=== PATIENT | female | born 1970 | race Caucasian/White ===

== ENCOUNTER → 2018-02-16 | Outpatient (CLI) | payer BC | LOC: SL 19:21 | PROVIDERS: ATTEND Internal Medicine | DX: G47.33 Obstructive sleep apnea (adult) (pediatric) (principal) ==

== ENCOUNTER 2019-07-08 13:56 | Inpatient (IN) | payer BC ==
--- NOTE | 2019-07-08 14:59 | RAD ---
EXAM DESCRIPTION: Chest,1 View CLINICAL HISTORY: 49 years Female, syncope COMPARISON: Previous chest x-ray March 23, 2014 TECHNIQUE: AP portable chest. FINDINGS: Heart size is large with normal pulmonary vascularity. Implanted cardiac monitoring device overlies the left heart. Mild rightward curvature of the T-spine. No consolidating infiltrate. No pulmonary mass or worrisome nodule. No pneumothorax or pleural effusion. Bones are unremarkable. IMPRESSION: No acute process is identified in the chest. Electronically signed by: Alexandru Sue MD 07/08/2019 2:57 PM CDT
[2019-07-08] MEDS ORDERED: POTASSIUM CHLORIDE ELIXIR 20 MEQ/15 ML UD PO ONE (15:47)
[2019-07-08] MEDS ORDERED: KCL 20 MEQ/NS 1,000 ML IVS ONE (15:48)
[2019-07-08] MEDS ORDERED: cefTRIAXone SODIUM 1 GM in SODIUM CHL 0.9% 50ML MIN-BAG+ 50 ML IVPB ONE (17:32)
[2019-07-08] MEDS ORDERED: SODIUM CHL 0.9% 50ML MIN-BAG+ 50 ML IVPB ONE (17:45)
[2019-07-08] MEDS ORDERED: cefTRIAXone SODIUM 1 GM VIAL ONE (17:45)
[2019-07-08] MEDS ORDERED: IBUPROFEN 200 MG TAB PO ONE (18:01)
--- NOTE | 2019-07-08 18:36 | ED.PDOC ---
History of Present Illness - General Chief Complaint: Syncope/Near Syncope Stated Complaint: Syncopal event w/o a fall Time Seen by Provider: 07/08/19 14:01 Source: patient Exam Limitations: no limitations - History of Present Illness Initial Comments: the patient is a 49-year-old female presenting to emergency room after a near syncopal event this afternoon. She had been managing a garage several when she felt lightheaded, with tingling in her extremities. She was able to fairly well lower herself to the ground. No injuries. She is not sure she went out entirely. Her family with her thinks that she may have gone completely out for about 3 or 4 seconds. No nausea or vomiting. She did eat prior. She had felt poorly earlier in the morning. She does have a history of atrial fibrillation with rapid ventricular rate. She did have another ablation done 1- 2 months ago. She does take propafanone and diltiazem for heart rate control. She does have a loop recorder in place. she did take her medications this morning. She has also been having some lower abdominal cramping for the last few days. Timing/Duration: momentarily Severity: moderate Improving Factors: nothing Worsening Factors: nothing Associated Symptoms: loss of appetite, malaise, nausea/vomiting, syncope, weakness Allergies/Adverse Reactions: Allergies Penicillins Allergy (Verified 07/08/19 14:15) Home Medications: Ambulatory Orders Furosemide [Lasix] 40 mg PO DAILY #4 tab 06/13/16 Sulfa/Trimeth 800/160 (Ds) Tab [Bactrim DS Tab] 1 ea PO BID #10 tab 06/13/16 Review of Systems - Review of Systems Constitutional: States: malaise, weakness - eneralized EENTM: States: no symptoms reported Respiratory: States: no symptoms reported Cardiology: States: no symptoms reported Gastrointestinal/Abdominal: States: abdominal pain Genitourinary: States: no symptoms reported Musculoskeletal: States: no symptoms reported Skin: States: no symptoms reported Neurological: States: other - syncope Endocrine: States: no symptoms reported All other Systems: No Change from Baseline Past Medical History (General) - Patient Medical History Hx Seizures: No Hx Stroke: No Hx Dementia: No Hx Asthma: No Hx of COPD: No Hx Cardiac Disorders: Yes - A fib Hx Congestive Heart Failure: No Hx Pacemaker: No Hx Hypertension: Yes Hx Thyroid Disease: No Hx Diabetes: No Hx Gastroesophageal Reflux: No Hx Renal Disease: No Hx Cancer: No Hx of HIV: No Hx Hepatitis C: No Hx MRSA: No Surgical History: tonsillectomy - Vaccination History Hx Tetanus, Diphtheria Vaccination: Yes Hx Influenza Vaccination: Yes Hx Pneumococcal Vaccination: No - Social History Hx Tobacco Use: No Hx Chewing Tobacco Use: No Hx Alcohol Use: No Hx Substance Use: No Hx Substance Use Treatment: No Hx Depression: No Hx Physical Abuse: No Hx Emotional Abuse: No Hx Suspected Abuse: No - Female History Patient is a Female of Child Bearing Age (10 -59 yrs old): Yes Patient : No - Denies Family Medical History - Family History Mother Family History: Unknown Living Status: Unknown Hx Family Hypertension: Yes Hx Cardiac Disease: Yes Hx Family;Other: Adopted Physical Exam - Physical Exam General Appearance: Alert, Ill Appearing Eye Exam: bilateral normal Ears, Nose, Throat: hearing grossly normal, normal pharynx Neck: full range of motion, supple Respiratory: lungs clear, normal breath sounds, no respiratory distress, no accessory muscle use Cardiovascular/Chest: normal peripheral pulses, regular rate, rhythm, no edema Peripheral Pulses: radial,right: 2+, radial,left: 2+ Gastrointestinal/Abdominal: soft, other - mild diffuse lower abdominal discomfort palpation. No rebound or peritoneal signs. no pin point pain at this time. Rectal Exam: deferred Back Exam: no CVA tenderness, no vertebral tenderness Extremity: normal range of motion, non-tender, normal inspection, no pedal edema, no calf tenderness, normal capillary refill Neurologic: turn sewer II-XII nml as tested, alert, normal mood/affect, oriented x 3 Skin Exam: normal color Comments: Vital Signs - 24 hr 07/08/19 07/08/19 07/08/19 14:08 15:18 15:19 Temperature 100.4 F H Pulse Rate [ 76 75 81 Monitor] Respiratory 20 18 18 Rate Blood Pressure 132/72 104/65 103/68 [L brachial] O2 Sat by Pulse 100 96 98 Oximetry 07/08/19 07/08/19 07/08/19 16:00 17:00 18:00 Temperature Pulse Rate [ 77 73 70 Monitor] Respiratory 18 20 16 Rate Blood Pressure 137/63 104/67 105/61 [L brachial] O2 Sat by Pulse 99 99 98 Oximetry Progress - Progress Progress: 07/08/19 18:40 the patient is a 49-year-old female presenting after syncopal event of a few seconds that was likely related to her A. fib with RVR. Heart rate monitor shows that her rate was up in the 180s at times during the day today. She cardioverted spontaneously back to normal sinus rhythm before arriving here. She has remained in normal sinus rhythm since here. The patient does have some mild dehydration has been given some IV fluids. She has very significant hypokalemia and is being repleted orally and with IV. She will need to have this rechecked and likely supplemented further overnight. The patient does have a fever and a leukocytosis which may be attributed to the cystitis. She is receiving a dose of Rocephin for that currently. She will need to be continued on her diltiazem and propafenone obviously. She may benefit from a reduction in Lasix both from the standpoint of her current dehydration and hypokalemia. Consideration could possibly given to low-dose spironolactone in place of her second dose of Lasix. Admitted for continued monitoring and potassium repletion. kianna jade [id number] - Results/Orders Results/Orders: chest x-ray shows mild cardiomegaly. EKG shows normal sinus rhythm with a mild right axis deviation. Rate is [address] segment depression in anterior leads. This may however be an incomplete return to baseline between the T wave and the P wave, due to the hypokalemia. no other definitive ST segment or T-wave changes indicative of acute ischemia. Normal QT interval. Normal R-wave progression. Possibly mild right atrial dilation. Laboratory Tests 07/08/19 07/08/19 07/08/19 14:47 14:47 14:47 WBC 16.9 H RBC 4.35 Hgb 13.2 Hct 37.9 MCV 87.2 MCH 30.3 MCHC 34.7 RDW 12.0 Plt Count 256 MPV 9.5 Absolute Neuts (auto) 13.20 H Absolute Lymphs (auto) 1.60 Absolute Monos (auto) 1.90 H Absolute Eos (auto) 0.10 Absolute Basos (auto) 0.00 Neutrophils % 78.3 H Lymphocytes % 9.5 L Monocytes % 11.3 H Eosinophils % 0.6 L Basophils % 0.3 PT 10.9 INR 1.09 PTT (SP) 27.6 Sodium 138 Potassium 2.1 L* Chloride 96 L Carbon Dioxide 28 Anion Gap 16.1 BUN 26 H Creatinine 1.19 BUN/Creatinine Ratio 21.8 H Random Glucose 161 H Serum Osmolality 283.9 Lactic Acid Calcium 10.1 Magnesium 2.1 Total Bilirubin 1.0 AST 38 ALT 32 Alkaline Phosphatase 105 Creatine Kinase 337 H* CK-MB (CK-2) 4.7 H* CK-MB (CK-2) % 1.39 Troponin I 0.04 B-Natriuretic Peptide 183.0 H Serum Total Protein 7.8 Albumin 4.5 Globulin 3.3 Albumin/Globulin Ratio 1.4 TSH 2.37 Urine Color Urine Appearance Urine pH Ur Specific Pringle Urine Protein Urine Glucose (UA) Urine Ketones Urine Blood Urine Nitrite Urine Bilirubin Urine Urobilinogen Ur Leukocyte Esterase Urine RBC Urine WBC Ur Epithelial Cells Urine Bacteria Urine HCG, Qual 07/08/19 07/08/19 07/08/19 14:47 15:45 15:45 WBC RBC Hgb Hct MCV MCH MCHC RDW Plt Count MPV Absolute Neuts (auto) Absolute Lymphs (auto) Absolute Monos (auto) Absolute Eos (auto) Absolute Basos (auto) Neutrophils % Lymphocytes % Monocytes % Eosinophils % Basophils % PT INR PTT (SP) Sodium Potassium Chloride Carbon Dioxide Anion Gap BUN Creatinine BUN/Creatinine Ratio Random Glucose Serum Osmolality Lactic Acid 1.3 Calcium Magnesium Total Bilirubin AST ALT Alkaline Phosphatase Creatine Kinase CK-MB (CK-2) CK-MB (CK-2) % Troponin I B-Natriuretic Peptide Serum Total Protein Albumin Globulin Albumin/Globulin Ratio TSH Urine Color Yellow Urine Appearance Clear Urine pH 6.5 Ur Specific Pringle 1.015 Urine Protein 30 Urine Glucose (UA) Negative Urine Ketones Negative Urine Blood Small H Urine Nitrite Negative Urine Bilirubin Negative Urine Urobilinogen 0.2 Ur Leukocyte Esterase Trace H Urine RBC 1-3 Urine WBC 10-20 H Ur Epithelial Cells 5-10 Urine Bacteria 1+ Urine HCG, Qual Negative Departure - Departure Clinical Impression: Hypokalemia, Atrial fibrillation with RVR, Dehydration, Cystitis Syncope Qualifiers: Syncope type: unspecified Qualified Code(s): R55 - Syncope and collapse Disposition: Admit Patient Departure Forms: ED Discharge - Pt. Copy, Patient Portal Self Enrollment Referrals: Martin Toney MD [Primary Care Provider] - 1-2 Weeks Home Medications: Ambulatory Orders Furosemide [Lasix] 40 mg PO DAILY #4 tab 06/13/16 Sulfa/Trimeth 800/160 (Ds) Tab [Bactrim DS Tab] 1 ea PO BID #10 tab 06/13/16 Decision To Admit - Decistion To Admit Decision to Admit Reason: Medical Nature Decision to Admit Date: 07/08/19 Decision to Admit Time: 18:44
--- NOTE | 2019-07-08 19:02 | HP ---
SUPERVISING PHYSICIAN: Tomás Pathak MD CHIEF COMPLAINT: Syncopal event without a fall. HISTORY OF PRESENT ILLNESS: Ms. Chaparro is a 49 year-old female patient who presented to the Emergency Department this afternoon after she had a near-syncopal episode at home. She had been working a garage sale when she noted she was lightheaded and was not feeling well, was having what she called tingling to her extremities. She reported she was going to lay down, however, she was unable to make it to the bed and was assisted to the ground by her family members. She reported no injuries and she is unsure if she actually lost consciousness but her family thinks she may have been out for 3 to 4 seconds. She reported no nausea or vomiting. She had previously eaten a hamburger. She does have a history of atrial fibrillation with rapid ventricular rate and has had 5 ablations with last ablation being in the last month. She was started on Propafenone and diltiazem for rate control. She has a loop recorder in place which after notifying the company, the device was interrogated and she did have an episode when her heart rate was in the 180s. She apparently converted spontaneously back to normal sinus rhythm before she arrived the Emergency Room. On arrival to the Emergency Room, she was in a sinus rhythm. She is noted to be mildly dehydrated and was given some IV fluids. Her lab did show she had a significant hypokalemia with a potassium of 2.1, magnesium was normal. She does take Lasix and potassium replacement and notes that she has not taken any extra doses. Her troponin was within normal limits at 0.04. She denies any chest pain. Her EKG in the Emergency Room showed she was in a sinus rhythm with a controlled ventricular rate at 76 with just a very mild ST segment depression anteriorly but unable to fully interpret due to the low potassium but no true evidence of ST segment T-wave changes to indicate acute ischemia. Her QT- intervals were normal. She had normal R-wave progression. She is also on chronic anticoagulation with Eliquis. She was given oral potassium as well as started on IV fluids for dehydration and potassium replacement. A urinary tract infection was noted by her urine that showed she had 10 to 20 WBCs with 1+ bacteria. She was given a dose of Rocephin. Her urine HCG was negative. Given that she is showing to be stable as to her heart rhythm and had no chest pains noted after the acute event, she is going to be placed in observation for further cardiac telemetry monitoring and further normalization of her potassium. She was placed in observation in stable condition. PAST MEDICAL HISTORY: 1. Atrial fibrillation with 5 ablations, last being in the last month and one cardioversion, on Cardizem and Rythmol for rate control. 2. Congenital heart defect. PAST SURGICAL HISTORY: 1. Patent ductus repair. 2. Reported atrial septal defect. Those records are not available for review. 3. Tonsillectomy x2. 4. x1. CURRENT MEDICATIONS: Awaiting updated list for verification but on followin. Lasix. 2. Cardizem. 3. Rythmol. 4. Potassium. 5. Eliquis. Please see an updated list once those are verified medications on admission. ALLERGIES: PENICILLINS. FAMILY HISTORY: Unknown as she is adopted. SOCIAL HISTORY: The patient has worked at [employer] for multiple years. She is . She has one child who is 18 years of age. She lives in [place]. She has never smoked, she does not drink alcohol or use illicit drugs. REVIEW OF SYSTEMS: CONSTITUTIONAL: Positive for general malaise and weakness. HEENT: Denies headaches, ear aches, sore throat, visual change or nasal congestion. RESPIRATORY: Negative for shortness of breath, wheezing or coughing. CARDIOVASCULAR: As noted in history of present illness. History of atrial fibrillation but no reported palpitations or chest pain but did have a near syncopal episode. GASTROINTESTINAL: Denies abdominal pain, nausea or vomiting or diarrhea. GENITOURINARY: Denies dysuria, hematuria, polyuria. MUSCULOSKELETAL: Denies arthralgias, joint swelling. SKIN: Denies changes. lesions, moles or rashes. NEUROLOGIC: Positive for near-syncopal, syncopal episode as noted in history of present illness. Negative for ataxia, seizures, paresthesias or other neurological deficit. HEMATOLOGIC: Denies easy bruising, unexplained bleeding or transfusion reaction. PHYSICAL EXAMINATION: VITAL SIGNS: On admission to the Emergency Room, temperature was 100.4, heart rate 76, blood pressure 132/72, respirations 20, oxygen saturation 100% on room air. Review of her [employer] loop monitor showed she had a rate as high as 180s but she cardioverted and continues to show a controlled ventricular rate. Admission weight 73 kg. GENERAL: The patient appears to be in no acute distress. She is well- nourished. She is alert. She does appear tired or not feeling well but no obvious distress. HEENT: Tympanic membranes are clear bilaterally. Oropharynx is pink with dry mucous membranes. NECK: Supple, non-tender, full range of motion, no jugular venous distention. CHEST: Lung sounds are clear to auscultation without any obvious rhonchi, rales, or wheezes. CARDIOVASCULAR: Regular rate and rhythm without appreciable murmurs, rubs, or gallops. ABDOMEN: Soft, non-tender. On palpation, no rebound tenderness or peritoneal signs. No pin point pain, no guarding. Bowel sounds are active. BACK: No obvious CVA tenderness or vertebral tenderness. EXTREMITIES: No cyanosis, clubbing, or edema. NEUROLOGIC: Cranial nerves II through XII are grossly intact. Facial features were symmetrical. No notable nystagmus. She was alert and oriented x 3. SKIN: Warm, pink and dry. RECTAL: Exam deferred. LABORATORY: White count elevated at 16,900, hemoglobin 13.2, hematocrit 37.9, platelet count 256,000. Differential did show a left shift. Coagulation studies showed normal PT/PTT. Chemistries showed a hypokalemia with a potassium of 2.1, normal sodium at 138. Magnesium was normal at 2.1. Creatinine 1.19 with BUN of 26. BUN/creatinine ratio was 22. Lactic acid 1.3. CPK was elevated at 337 with a CPK MB percent of 1.39. Troponin 0.04. BNP only slightly elevated at 183. TSH normal at 2.37. Urinalysis showed a small amount of blood with a trace of leukoesterase, 1 to 3 RBCs, 10 to 20 WBCs, 5 to 10 epithelials, 1+ bacteria, negative urine HCG. MICROBIOLOGY: Blood cultures are pending. Urine culture pending. RADIOLOGY: Chest x-ray, single-view chest, per radiology interpretation showed no acute process identified within the chest. ASSESSMENT: 1. Syncopal episode without fall or injury with a history of atrial fibrillation and previous ablations, on rate controlled medication with Rythmol, Cardizem and review of cardiac loop monitor showing during the reported episode that she had a heart rate in the 180s that cardioverted to normal sinus rhythm prior to admission. 2. Hypokalemia, possibly contributing to #1. 3. Moderate dehydration with the patient having a history of Lasix, possibly contributing to the hypokalemia and exacerbating #1. 4. History of atrial fibrillation with 5 ablations and 1 cardioversion and recently being put on Rythmol and Cardizem. 5. Urinary tract infection with cultures pending. 6. Leukocytosis with a fever with no other signs of sepsis with a reported heart rate in the 180s, syncopal episode and temperature and infectious source identified as a urinary tract infection with a leukocytosis possibly resulting in an exacerbation of her ventricular rate and contributing to the syncopal episode. PLAN: Ms. Chaparro is going to be placed in observation tonight for close cardiac telemetry monitoring neurological status checks. We will resume her home medications. We will continue with potassium replacement. She got 40 oral in the Emergency Room and is getting IV fluids with IV potassium which will continue through the night. Will check a BNP in the morning. Will hold her Lasix at this point and reassess in the morning. I anticipate length of stay to be 1 to 2 days, possibly discharge later tomorrow if her potassium normalizes and she has no return of the abnormal heart rate. Will continue with antibiotic coverage for urinary tract infection with Rocephin. Cultures are pending. I do not anticipate this will keep her from being discharged unless she continues to run a fever and show declining status overnight. She will discharge with oral antibiotics and closely followup with urine cultures on discharge. She is already on DVT prophylaxis with Eliquis which will be continued. Until we can transition to outpatient management, will continue to monitor and treat as needed. On discharge, she will need close followup with her hose handler next week, but again, she also has a continuous ekg monitor tech implanted which is being directly observed. She will also need to followup with Dr. Toney, her primary care physician, as she has not seen him in well over a year to 2 years. #[id number] [facility]
[2019-07-08] MEDS ORDERED: ONDANSETRON INJ 4 MG/2 ML VIAL IV PRN (19:49)
[2019-07-08] MEDS ORDERED: SODIUM CHLORIDE 0.9% (FLUSH) 10 ML SYG IV PRN (19:49)
[2019-07-08] MEDS ORDERED: MAGNESIUM HYDROXIDE 30 ML UD PO PRN (19:49)
[2019-07-08] MEDS ORDERED: ALUM & MAG HYDROX-SIMETHICONE 30 ML UD PO PRN (19:49)
[2019-07-08] MEDS ORDERED: ACETAMINOPHEN 325 MG TAB PO PRN (19:49)
[2019-07-08] MEDS: IV SET AND CAP CHANGE INJ INJ SCH (20:52)
[2019-07-08] MEDS ORDERED: ENOXAPARIN SODIUM 40 MG/0.4 ML SYG SUBCU SCH (21:00)
[2019-07-08] MEDS ORDERED: KCL 20 MEQ/NS 1,000 ML IVS PRN (22:03)
[2019-07-08] MEDS ORDERED: PROPAFENONE 150 MG TAB ONE (22:08)
[2019-07-08] MEDS: PROPAFENONE HCL 225 MG PO SCH (22:09)
[2019-07-08] MEDS: APIXABAN 5 MG TAB PO SCH (22:10)
[2019-07-08] MEDS: KCL 20 MEQ/NS 1,000 ML IVS PRN (22:12)
[2019-07-09] MEDS: KCL 20 MEQ/NS 1,000 ML IVS PRN ×2 (02:36→19:49)
[2019-07-09] MEDS ORDERED: POTASSIUM CHLORIDE 20 MEQ TAB PO ONE (08:01)
[2019-07-09] MEDS ORDERED: SODIUM CHL 0.9% 50ML MIN-BAG+ 50 ML IVPB ONE ×3 (08:59→19:09)
[2019-07-09] MEDS ORDERED: cefTRIAXone SODIUM 1 GM VIAL ONE (09:00)
[2019-07-09] MEDS ORDERED: cefTRIAXone SODIUM 1 GM in SODIUM CHL 0.9% 50ML MIN-BAG+ 50 ML IVPB SCH (09:00)
[2019-07-09] MEDS: APIXABAN 5 MG TAB PO SCH ×2 (09:04→20:43)
[2019-07-09] MEDS: PROPAFENONE HCL 225 MG PO SCH ×2 (09:30→20:43)
[2019-07-09] MEDS: DILTIAZEM HCL COATED BEADS PO SCH (09:30)
[2019-07-09] MEDS ORDERED: CEFEPIME 2 GM VIAL ONE ×2 (16:30→19:10)
[2019-07-09] MEDS: CEFEPIME 2 GM in SODIUM CHL 0.9% 50ML MIN-BAG+ 50 ML IVPB SCH (16:39)
[2019-07-10] MEDS: CEFEPIME 2 GM in SODIUM CHL 0.9% 50ML MIN-BAG+ 50 ML IVPB SCH ×3 (00:33→17:03)
[2019-07-10] MEDS ORDERED: CEFEPIME 2 GM VIAL ONE ×3 (08:13→19:31)
[2019-07-10] MEDS ORDERED: SODIUM CHL 0.9% 50ML MIN-BAG+ 50 ML IVPB ONE ×3 (08:13→19:31)
--- NOTE | 2019-07-10 08:19 | PN ---
DATE: 07/09/19 SUPERVISING PHYSICIAN: Tomás Pathak MD SUBJECTIVE: The patient is not having any additional abnormal rhythms on the bedside monitor. She does have chills but no actual fever but she did show a positive blood culture with gram negative rods today. She has had no nausea, vomiting or diarrhea. OBJECTIVE: VITAL SIGNS: Temperature 99.5, pulse 83, blood pressure 113/66, oxygen saturation 99%. GENERAL: The patient is resting comfortably and appears to be in no acute distress. She is alert. CHEST: Clear to auscultation. HEART: Regular rate and rhythm. ABDOMEN: Soft, non-tender, positive bowel sounds. EXTREMITIES: Without edema. NEUROLOGIC: She is alert and oriented x3. LABORATORY: White cont 10,300, hemoglobin 10.9, hematocrit 31.0, platelet count 147,000. Differential does show improving left shift. Chemistries: potassium this morning 2.8. Other electrolytes within normal limits. BUN 19, creatinine down to 149. Troponin 0.2. MICROBIOLOGY: Urine culture pending. One blood culture did show gram negative rods on preliminary with culture pending.. ASSESSMENT: 1. Syncopal episode without fall or injury with a history of atrial fibrillation and previous ablations, on rate controlled medication with Rythmol, Cardizem and review of cardiac loop monitor showing during the reported episode that she had a heart rate in the 180s that cardioverted to normal sinus rhythm prior to admission. 2. Hypokalemia, possibly contributing to #1. 3. Gram negative bacteremia, possibly contributing to #1. 4. Moderate dehydration with the patient having a history of Lasix, possibly contributing to the hypokalemia and exacerbating #1, improved with oral replacement. 5. Sepsis with leukocytosis, fever, infectious source to include gram negative bacteremia likely worsened, cultures pending with heart rate noted before admission in the 180s and syncopal episode as noted in #1. PLAN: Ms. Chaparro is going to continue with current plan of care at this point with antibiotics but will switch her to Cefepime 2 grams every 8 hours given that she did show a gram negative rosa maria in the blood culture. She remains hemodynamically stable. She has not had any additional runs of V-tach or atrial fibrillation with RDR since admission. Her potassium continues to show improvement, will continue with oral replacement and followup with a BMP to normalize. Will await culture results on the urine and blood culture to target antibiotic therapy as appropriate. Anticipate her length of stay to be at least 2 to 3 days pending the cultures to assure we are on the right antibiotics since she is showing improvement. Until we can transition her to outpatient management, we will continue to monitor and treat as needed #[id number] [facility]
[2019-07-10] MEDS: APIXABAN 5 MG TAB PO SCH ×2 (08:29→20:40)
[2019-07-10] MEDS: PROPAFENONE HCL 225 MG PO SCH ×2 (08:29→20:40)
[2019-07-10] MEDS: KCL 20 MEQ/NS 1,000 ML IVS PRN (08:29)
[2019-07-10] MEDS: DILTIAZEM HCL COATED BEADS PO SCH (08:30)
[2019-07-10] MEDS ORDERED: SODIUM CHLORIDE 0.9% (FLUSH) 10 ML SYG IV ONE (08:37)
[2019-07-10] MEDS: SODIUM CHLORIDE 0.9% (FLUSH) 10 ML SYG IV SCH ×2 (17:04→20:40)
--- NOTE | 2019-07-10 18:37 | PN ---
DATE: 07/10/19 SUPERVISING PHYSICIAN: Tomás Pathak M.D. SUBJECTIVE: The patient is doing well this morning. She has been afebrile. I did talk to her about the positive blood culture and plan of care being that she will be in the hospital probably until we can get a culture result back so we know what to do with her antibiotic therapy. She is not reporting any nausea or vomiting, or any diarrhea. OBJECTIVE: VITAL SIGNS: Temperature 98.5, pulse 74, blood pressure 110/75, respirations 18, satting 99% on room air. GENERAL: The patient is resting comfortably visiting with family. She is alert. CHEST: Clear to auscultation. HEART: Regular rate and rhythm. ABDOMEN: Soft, non-tender. Positive bowel sounds. EXTREMITIES: Without edema. NEUROLOGIC: She is alert and oriented times three. LABORATORY: White count normalized yesterday to 10,300. Chemistries today are showing sodium 142, potassium 3.2 with BUN 11, creatinine 0.79, calcium 9.9, magnesium is normal at 2.0. MICROBIOLOGY: She has 1 blood culture that was positive for gram-negative rods with culture and sensitivity pending. Urine culture sensitivity pending. RADIOLOGY: No additional radiographic studies. ASSESSMENT: 1. Syncopal episode secondary to a short episode of atrial fibrillation with a rapid ventricular response into the 180s with spontaneous cardioversion with the patient not showing any additional abnormal rhythms with the patient on Rythmol and Cardizem. 2. Hypokalemia, possibly contributing to #1, improved with replacement. 3. Sepsis secondary to gram negative bacteremia and a urinary tract infection likely exacerbating #1 due to fever. 4. Moderate dehydration due to Lasix which probably was contributing to #1 now improved with oral replacement and IV therapy. 5. History of atrial fibrillation with multiple ablation therapy sessions with the last being within the last month with the patient having continuous bus driver/monitor implanted with the patient having a controlled rate with Rythmol and Cardizem with a brief episode of rapid ventricular response but spontaneously cardioverted to normal sinus rhythm with the patient being closely followed by cardiology. PLAN: Will continue antibiotic coverage at this point with Cefepime every 8 hours awaiting final culture results both on her urine and blood cultures. Once those cultures are back we can target antibiotic therapy as appropriate hopefully with oral coverage. Given that she does have bacteremia and an implanted device, probably need to touch base with Dr. Meza once all of the cultures are back to further determine need for antibiotic coverage and length of treatment. Will continue to monitor potassium. I am holding her Lasix which she was taking 80 daily apparently for extreme swelling. I did discuss with her that on discharge she will need probably to decrease this dose or at least hold it until she sees her stock associate. Until we can get cultures back and further target antibiotic therapy will continue to monitor and treat as needed until we can transition her to outpatient management. #[id number] [facility]
[2019-07-11] MEDS: CEFEPIME 2 GM in SODIUM CHL 0.9% 50ML MIN-BAG+ 50 ML IVPB SCH ×3 (01:30→17:01)
[2019-07-11] MEDS ORDERED: SODIUM CHL 0.9% 50ML MIN-BAG+ 50 ML IVPB ONE ×3 (09:30→19:47)
[2019-07-11] MEDS ORDERED: CEFEPIME 2 GM VIAL ONE ×3 (09:31→19:47)
[2019-07-11] MEDS: DILTIAZEM HCL COATED BEADS PO SCH (09:33)
[2019-07-11] MEDS: APIXABAN 5 MG TAB PO SCH ×2 (09:33→20:48)
[2019-07-11] MEDS: SODIUM CHLORIDE 0.9% (FLUSH) 10 ML SYG IV SCH ×2 (09:34→20:48)
[2019-07-11] MEDS: PROPAFENONE HCL 225 MG PO SCH ×2 (09:34→20:47)
--- NOTE | 2019-07-11 14:07 | PN ---
SUPERVISING PHYSICIAN: Martin Toney MD DATE: 07/11/19 SUBJECTIVE: The patient does not really have any significant complaints today. She denies any nausea and vomiting, any type of pain at this time. OBJECTIVE: VITAL SIGNS: Blood pressure 115/76. Heart rate 64. Respiratory rate 20. Temperature 98.1. Oxygen saturation 100%. GENERAL: Ms. Chaparro is a 49-year-old female in no acute distress currently. NEUROLOGIC: Alert and oriented. LUNGS: Clear to auscultation bilaterally. CARDIOVASCULAR: Regular rate and rhythm. Normal S1, S2. ABDOMEN: Soft. Positive bowel sounds. GENITOURINARY: Deferred. EXTREMITIES: Lower extremities with no edema. LABORATORY: Potassium 3.3. This is a little bit of improvement from yesterday. ASSESSMENT: 1. Syncopal episode secondary to a atrial fibrillation with rapid ventricular response, which is now normal sinus rhythm. 2. Hypokalemia, seems to be improving. 3. Sepsis secondary to gram negative bacteremia likely from urinary tract infection with final identification pending. 4. Dehydration secondary to excessive Lasix, improving. 5. History of atrial fibrillation with multiple ablation therapies in the past, currently utilizing Rythmol and Cardizem. PLAN: Given her improvement on her current antibiotics, I will not change these. Heart rate is controlled on current medications as well. Once the final identification is back, we can decide on antibiotic therapies, but we will continue IV cefepime for now. #[id number] [facility]
[2019-07-11] MEDS ORDERED: CLINDAMYCIN IV 600MG 0 ML IVPB ONE (19:17)
[2019-07-11] MEDS ORDERED: LACTATED RINGERS 0 ML ONE (19:17)
[2019-07-11] MEDS ORDERED: PANTOPRAZOLE SODIUM IV 40 MG VIAL ONE (19:18)
[2019-07-11] MEDS: IV SET AND CAP CHANGE INJ INJ SCH (20:51)
[2019-07-12] MEDS: CEFEPIME 2 GM in SODIUM CHL 0.9% 50ML MIN-BAG+ 50 ML IVPB SCH ×2 (00:43→08:53)
[2019-07-12] MEDS ORDERED: SODIUM CHL 0.9% 50ML MIN-BAG+ 50 ML IVPB ONE (06:58)
[2019-07-12] MEDS ORDERED: CEFEPIME 2 GM VIAL ONE (06:58)
[2019-07-12] MEDS: SODIUM CHLORIDE 0.9% (FLUSH) 10 ML SYG IV SCH (08:48)
[2019-07-12] MEDS: DILTIAZEM HCL COATED BEADS PO SCH (08:48)
[2019-07-12] MEDS: APIXABAN 5 MG TAB PO SCH (08:48)
[2019-07-12] MEDS: PROPAFENONE HCL 225 MG PO SCH (08:49)
[2019-07-12 14:07] VITALS: BP 121/74; TEMP 98.1; O2SAT 98
--- NOTE | 2019-07-12 15:46 | DS ---
SUPERVISING PHYSICIAN: Martin Toney MD ADMISSION DIAGNOSIS: 1. Syncopal episode. 2. Atrial fibrillation with rapid ventricular response. 3. Hypokalemia, possibly contributing to #1. 4. Dehydration secondary to diuretics. 5. Urinary tract infection. DISCHARGE DIAGNOSIS: 1. Escherichia coli bacteremia. 2. Urinary tract infection. 3. Hypokalemia. 4. Atrial fibrillation. 5. Dehydration, resolved. HISTORY OF PRESENT ILLNESS: This is a 49 year-old female patient who presented to the Emergency Department this afternoon after she had a near-syncopal episode at home. She had been working a garage sale when she noted she was lightheaded and was not feeling well, was having what she called tingling to her extremities. She reported she was going to lay down, however, she was unable to make it to the bed and was assisted to the ground by her family members. She reported no injuries and she is unsure if she actually lost consciousness but her family thinks she may have been out for 3 to 4 seconds. She reported no nausea or vomiting. She had previously eaten a hamburger. She does have a history of atrial fibrillation with rapid ventricular rate and has had 5 ablations with last ablation being in the last month. She was started on Propafenone and diltiazem for rate control. She has a loop recorder in place which after notifying the company, the device was interrogated and she did have an episode when her heart rate was in the 180s. She apparently converted spontaneously back to normal sinus rhythm before she arrived the Emergency Room. On arrival to the Emergency Room, she was in a sinus rhythm. She is noted to be mildly dehydrated and was given some IV fluids. Her lab did show she had a significant hypokalemia with a potassium of 2.1, magnesium was normal. She does take Lasix and potassium replacement and notes that she has not taken any extra doses. Her troponin was within normal limits at 0.04. She denies any chest pain. Her EKG in the Emergency Room showed she was in a sinus rhythm with a controlled ventricular rate at 76 with just a very mild ST segment depression anteriorly but unable to fully interpret due to the low potassium but no true evidence of ST segment T-wave changes to indicate acute ischemia. Her QT- intervals were normal. She had normal R-wave progression. She is also on chronic anticoagulation with Eliquis. She was given oral potassium as well as started on IV fluids for dehydration and potassium replacement. A urinary tract infection was noted by her urine that showed she had 10 to 20 WBCs with 1+ bacteria. She was given a dose of Rocephin. Her urine HCG was negative. Given that she is showing to be stable as to her heart rhythm and had no chest pains noted after the acute event, she is going to be placed in observation for further cardiac telemetry monitoring and further normalization of her potassium. She was placed in observation in stable condition. HOSPITAL COURSE: The patient was admitted and placed on empiric antibiotics with cefepime. She did have a urine culture which came back with normal huseyin growth, but she had one bottle that had bacteremia which grew out E. coli. Sensitivities came back and were pretty much salmon sensitive. I did contact Dr. Meza who suggested 2 weeks of p.o. Levaquin. Additionally, while she was here, her heart rate stabilized and was controlled. She will need to followup with her customer services manager regarding the atrial fibrillation. I have suggested followup with Dr. Toney in 7 days. She will need a repeat potassium check as well. I have reduced her diuretics and put her on a little bit higher dose of potassium given the hypokalemia. Activity will be as tolerated. Diet as per previous diet. Medications as per the discharge medication reconciliation record. #[id number] [facility]
== END 2019-07-12 15:22 | disposition home or self-care (01) | DRG 308 ==
LOC: ER 13:56 → MS 19:00 → OBSVTOIN 07-09 17:04
PROVIDERS: ADMIT Nurse Practitioner Family; ATTEND Nurse Practitioner
DX: I48.91 Unspecified atrial fibrillation (principal); A41.51 Sepsis due to Escherichia coli [E. coli]; N39.0 Urinary tract infection, site not specified; E87.6 Hypokalemia; E86.0 Dehydration; T50.2X5A Adverse effect of carbonic-anhydrase inhibitors, benzothiadiazides and other diuretics, initial encounter; Y92.9 Unspecified place or not applicable; Z79.02 Long term (current) use of antithrombotics/antiplatelets; Z87.74 Personal history of (corrected) congenital malformations of heart and circulatory system; Z88.0 Allergy status to penicillin

== ENCOUNTER → 2020-06-15 | Outpatient (CLI) | payer BC | LOC: GMAJ 08:33 | PROVIDERS: ATTEND Family Medicine | DX: Z79.899 Other long term (current) drug therapy (principal) ==

== ENCOUNTER → 2020-07-23 | Outpatient (CLI) | payer BC | LOC: LAB.O 09:24 | PROVIDERS: ATTEND Physician Assistant Medical | DX: E21.0 Primary hyperparathyroidism (principal); Z86.79 Personal history of other diseases of the circulatory system ==